=== PATIENT | female | born 1965 | race Caucasian/White ===

== ENCOUNTER 2016-08-30 16:55 | Emergency (ER) | payer BC ==
[~2016-08-30] VITALS: Ht 162.6 cm; Wt 86.8 kg
[2016-08-30] MEDS ORDERED: HYDROmorphone 1 MG/ML, 1ML IM ONE (17:30)
[2016-08-30] MEDS ORDERED: HYDR-3241 PO (17:31)
[2016-08-30] MEDS ORDERED: HYDROmorphone 1 MG/ML, 1ML ONE (17:34)
[2016-08-30 19:22] VITALS: BP 126/70
== END 2016-08-30 19:24 | disposition home or self-care (01) ==
LOC: ED 19:18
DX: S52.101A Unspecified fracture of upper end of right radius, initial encounter for closed fracture (principal); S52.001A Unspecified fracture of upper end of right ulna, initial encounter for closed fracture; X58.XXXA Exposure to other specified factors, initial encounter; Y93.89 Activity, other specified; Y92.89 Other specified places as the place of occurrence of the external cause; Y99.8 Other external cause status
CPT/HCPCS: 73200; 96372; 99284; J1170

== ENCOUNTER 2016-09-05 09:40 | Day surgery (SDC) | payer BC ==
[~2016-09-05] VITALS: Ht 162.6 cm; Wt 81.8 kg
[~2016-09-05 09:40] MED LIST: FEXO180T72 PO; HYDR-3241 PO; OXYC1TAB7 PO; SENN1TAB67 PO
[2016-09-05 10:22] VITALS: BP 110/70
[2016-09-05 10:23] LABS: HCG UR OBC PASS
[2016-09-05 10:37] VITALS: BP 110/70
[2016-09-05] MEDS ORDERED: MIDAZOLAM 1 MG/ML, 2ML ONE (11:31)
[2016-09-05] MEDS ORDERED: FENTANYL PF 250 MCG/5ML ONE (11:31)
[2016-09-05] MEDS ORDERED: BUPIVACAINE/PF 0.5% ONE (11:35)
[2016-09-05] MEDS ORDERED: BUPIVACAINE/PF-EPI 0.5% 1:200K ONE (11:43)
[2016-09-05] MEDS ORDERED: DEXAMETHASONE 4 MG/ML, 1ML ONE (12:03)
[2016-09-05] MEDS ORDERED: SUCCINYLCHOLINE 20 MG/ML, 10ML ONE (12:03)
[2016-09-05] MEDS ORDERED: CEFAZOLIN 1,000 MG ONE (12:03)
[2016-09-05] MEDS ORDERED: PROPOFOL 10 MG/ML, 20ML ONE (12:03)
[2016-09-05] MEDS ORDERED: ONDANSETRON 2MG/ML, 2ML ONE (12:03)
[2016-09-05] MEDS ORDERED: ROCURONIUM 10 MG/ML ONE (12:03)
[2016-09-05] MEDS ORDERED: morphine SULFATE 10 MG/ML, 1ML IV PRN (16:00)
[2016-09-05] MEDS ORDERED: SODIUM CHLORIDE 0.9% 1,000 ML IV SCH (16:00)
[2016-09-05] MEDS ORDERED: ONDANSETRON 2MG/ML, 2ML IV PRN (16:00)
[2016-09-05] MEDS ORDERED: OXYcodone/APAP 5/325MG TABLET PO PRN (16:00)
[2016-09-05] MEDS ORDERED: OXYC1TAB7 PO (18:30)
== END 2016-09-05 17:30 | disposition home or self-care (01) ==
LOC: OR 09:40 → 4NOR 09:47 → OR 17:30
PROVIDERS: ATTEND Orthopaedic Surgery
DX: S52.021A Displaced fracture of olecranon process without intraarticular extension of right ulna, initial encounter for closed fracture (principal); S53.104A Unspecified dislocation of right ulnohumeral joint, initial encounter; V89.2XXA Person injured in unspecified motor-vehicle accident, traffic, initial encounter; Y92.89 Other specified places as the place of occurrence of the external cause; Y99.8 Other external cause status; Y93.89 Activity, other specified
CPT/HCPCS: 24345; 24366; 24685; 64718; 73070; 76001; 81025; C1713; C1762; C1776; J0330; J0690; J1100; J2250; J2405; J2704; J3010; J3490

== ENCOUNTER 2016-10-03 22:10 | Inpatient (IN) | payer BC ==
[~2016-10-03] VITALS: Ht 162.6 cm; Wt 88.6 kg
[2016-10-03] MEDS ORDERED: IBUP200C8 PO (22:32)
[2016-10-03] MEDS ORDERED: CEPH-367 PO (22:32)
[2016-10-03] MEDS: SODIUM CHLORIDE 0.9% 1,000 ML IV ONE (22:43)
[2016-10-03] MEDS ORDERED: ONDANSETRON 2MG/ML, 2ML ONE (22:58)
[2016-10-03] MEDS ORDERED: MORPHINE SULFATE 4 MG/ML, 1ML ONE (22:58)
[2016-10-03] MEDS ORDERED: CEFAZOLIN PMX 1GM/50ML 50 ML ONE (22:59)
[2016-10-03] MEDS ORDERED: SODIUM CHLORIDE FLUSH 10ML SYR IVF ONE (23:00)
[2016-10-03] MEDS ORDERED: MORPHINE SULFATE 4 MG/ML, 1ML IV PRN (23:00)
[2016-10-03] MEDS ORDERED: VANCOMYCIN PER PHARMACY MC ONE (23:00)
[2016-10-03] MEDS ORDERED: MORPHINE SULFATE 4 MG/ML, 1ML IVPush PRN (23:00)
[2016-10-03] MEDS ORDERED: CEFAZOLIN PMX 1GM/50ML 50 ML IVPB ONE (23:00)
[2016-10-03] MEDS ORDERED: ONDANSETRON 2MG/ML, 2ML IVPush ONE (23:00)
[2016-10-03] MEDS ORDERED: SODIUM CHLORIDE FLUSH 10ML SYR IVF PRN (23:00)
[2016-10-03] MEDS ORDERED: ONDANSETRON 2MG/ML, 2ML IVPush PRN (23:00)
[2016-10-03] MEDS ORDERED: VANCOMYCIN 1,700 MG in SODIUM CHLORIDE 0.9% 250 ML IV ONE (23:00)
[2016-10-03] MEDS ORDERED: SODIUM CHLORIDE 0.9% 1,000ML IVBOLUS ONE (23:00)
[2016-10-03 23:22] LABS: BLOOD UREA NITROGEN 20 mg/dL (7-18)
[2016-10-04] MEDS: SODIUM CHLORIDE 0.9% 1,000 ML IV ONE
[2016-10-04 00:27] VITALS: BP 138/77
[2016-10-04 03:13] VITALS: BP 126/80
[2016-10-04] MEDS ORDERED: MORPHINE SULFATE 4 MG/ML, 1ML IVPush PRN (03:30)
[2016-10-04] MEDS ORDERED: D5%-0.45NACL+KCL 20MEQ 1,000 ML IV SCH (03:30)
[2016-10-04] MEDS ORDERED: DIPHENHYDRAMINE 50 MG/ML, 1ML IVPush PRN (03:30)
[2016-10-04] MEDS ORDERED: ONDANSETRON 2MG/ML, 2ML IVPush PRN ×2 (03:30→13:00)
[2016-10-04] MEDS: CEFAZOLIN PMX 1GM/50ML 50 ML IV SCH ×3 (07:50→23:13)
[2016-10-04 08:26] VITALS: BP 126/82
[2016-10-04] MEDS ORDERED: FENTANYL PF 100 MCG/2ML ONE ×3 (12:15→13:47)
[2016-10-04] MEDS ORDERED: METOCLOPRAMIDE 5 MG/ML, 2ML ONE (12:20)
[2016-10-04] MEDS ORDERED: ONDANSETRON 2MG/ML, 2ML ONE (12:20)
[2016-10-04] MEDS ORDERED: LIDOCAINE 2%, 10ML ONE (12:20)
[2016-10-04] MEDS ORDERED: PROPOFOL 10 MG/ML, 20ML ONE (12:20)
[2016-10-04] MEDS ORDERED: MEPERIDINE/PF 25MG/0.5ML IVPush PRN (13:00)
[2016-10-04] MEDS ORDERED: METOPROLOL 1 MG/ML, 5ML IV PRN (13:00)
[2016-10-04] MEDS ORDERED: LABETALOL 5MG/ML, 20ML IV PRN (13:00)
[2016-10-04] MEDS ORDERED: MIDAZOLAM 1 MG/ML, 2ML IV PRN (13:00)
[2016-10-04] MEDS ORDERED: hydrALAzine 20 MG/ML, 1ML IV PRN (13:00)
[2016-10-04] MEDS ORDERED: PROMETHAZINE 25 MG/ML, 1ML IV PRN (13:00)
[2016-10-04] MEDS ORDERED: OXYcodone 5 MG/5 ML ORAL.SOL UDC PO PRN (13:00)
[2016-10-04] MEDS ORDERED: BACITRACIN OINT 500U/GM, 15 GM ONE (13:24)
[2016-10-04] MEDS ORDERED: OXYcodone 5 MG/5 ML ORAL.SOL UDC ONE (13:47)
[2016-10-04] MEDS: D5%-0.45% NACL 1,000 ML IV SCH ×2 (13:49→23:13)
[2016-10-04] MEDS: FENTANYL PF 100 MCG/2ML IV PRN ×2 (13:50→14:05)
[2016-10-04] MEDS ORDERED: ACETAMINOPHEN 325 MG TABLET PO PRN (14:00)
[2016-10-04] MEDS ORDERED: VANCOMYCIN PER PHARMACY MC PRN (14:00)
[2016-10-04] MEDS ORDERED: HYDROmorphone 1 MG/ML, 1ML ONE (14:06)
[2016-10-04] MEDS: HYDROmorphone 1 MG/ML, 1ML IV PRN ×2 (14:10→14:25)
[2016-10-04] MEDS ORDERED: PHARMACOKINETIC MONITORING MC PRN (14:30)
[2016-10-04] MEDS ORDERED: PHARMACOKINETIC CONSULTATION MC ONE (14:30)
[2016-10-04 15:10] VITALS: BP 130/76
[2016-10-04] MEDS: CLINDAMYCIN PMX 600MG/50ML 50 ML IVPB SCH (16:29)
[2016-10-04] MEDS: HYDROcodone/APAP 5/325 TABLET PO PRN ×2 (18:05→22:11)
[2016-10-04 19:05] VITALS: BP 117/57
[2016-10-04] MEDS: DOCUSATE 100 MG CAPSULE PO SCH (21:00)
[2016-10-05] MEDS: CLINDAMYCIN PMX 600MG/50ML 50 ML IVPB SCH ×3 (00:51→16:28)
[2016-10-05 01:10] VITALS: BP 112/62
[2016-10-05] MEDS: VANCOMYCIN 1,600 MG in SODIUM CHLORIDE 0.9% 250 ML IV SCH (01:55)
[2016-10-05] MEDS: HYDROcodone/APAP 5/325 TABLET PO PRN ×4 (04:59→20:15)
[2016-10-05 06:56] VITALS: BP 116/62
[2016-10-05] MEDS: CEFAZOLIN PMX 1GM/50ML 50 ML IV SCH ×3 (07:53→23:23)
[2016-10-05] MEDS: MULTIVITAMINS/MINERALS TABLET PO SCH (09:42)
[2016-10-05] MEDS: DOCUSATE 100 MG CAPSULE PO SCH ×2 (09:42→21:00)
[2016-10-05 12:40] VITALS: BP 113/66
[2016-10-05] MEDS: D5%-0.45% NACL 1,000 ML IV SCH (14:47)
[2016-10-05 19:07] VITALS: BP 112/73
[2016-10-06] MEDS: CLINDAMYCIN PMX 600MG/50ML 50 ML IVPB SCH ×2 (00:23→09:27)
[2016-10-06] MEDS: VANCOMYCIN 1,600 MG in SODIUM CHLORIDE 0.9% 250 ML IV SCH (01:36)
[2016-10-06] MEDS: HYDROcodone/APAP 5/325 TABLET PO PRN ×4 (01:36→17:38)
[2016-10-06] MEDS: D5%-0.45% NACL 1,000 ML IV SCH ×2 (03:15→15:43)
[2016-10-06 03:20] VITALS: BP 108/66
[2016-10-06 06:42] VITALS: BP 126/80
[2016-10-06] MEDS: CEFAZOLIN PMX 1GM/50ML 50 ML IV SCH (07:52)
[2016-10-06] MEDS: MULTIVITAMINS/MINERALS TABLET PO SCH (08:03)
[2016-10-06] MEDS: DOCUSATE 100 MG CAPSULE PO SCH ×2 (08:03→21:30)
[2016-10-06 12:20] VITALS: BP 103/71
[2016-10-06] MEDS: CEFAZOLIN PMX 2GM/50ML 50 ML IV SCH ×2 (15:43→23:57)
[2016-10-06 19:13] VITALS: BP 130/84
[2016-10-07] MEDS: HYDROcodone/APAP 5/325 TABLET PO PRN ×5 (00:02→22:17)
[2016-10-07 00:09] VITALS: BP 130/77
[2016-10-07] MEDS: D5%-0.45% NACL 1,000 ML IV SCH ×3 (02:00→22:17)
[2016-10-07 06:30] LABS: ASPARTATE AMINO TRANSFERASE 12 U/L (15-37); BLOOD UREA NITROGEN 10 mg/dL (7-18)
[2016-10-07 07:03] VITALS: BP 119/78
[2016-10-07] MEDS: CEFAZOLIN PMX 2GM/50ML 50 ML IV SCH ×2 (07:36→15:19)
[2016-10-07] MEDS: DOCUSATE 100 MG CAPSULE PO SCH ×2 (07:36→22:17)
[2016-10-07] MEDS: MULTIVITAMINS/MINERALS TABLET PO SCH (07:36)
[2016-10-07 16:05] VITALS: BP 118/82
[2016-10-07] MEDS: DAPTOMYCIN 550 MG in SODIUM CHLORIDE 0.9% 100 ML IVPB SCH (17:21)
[2016-10-07 19:32] VITALS: BP 117/77
[2016-10-08 02:23] VITALS: BP 112/73
[2016-10-08] MEDS: HYDROcodone/APAP 5/325 TABLET PO PRN ×3 (04:48→17:28)
[2016-10-08 05:40] LABS: C-REACTIVE PROTEIN, QUANT 0.9 mg/dL (0.02-0.49)
[2016-10-08 07:52] VITALS: BP 114/78
[2016-10-08] MEDS: D5%-0.45% NACL 1,000 ML IV SCH (08:00)
[2016-10-08] MEDS: MULTIVITAMINS/MINERALS TABLET PO SCH (08:04)
[2016-10-08] MEDS: DOCUSATE 100 MG CAPSULE PO SCH (08:04)
[2016-10-08 14:57] VITALS: BP 145/77
[2016-10-08] MEDS: DAPTOMYCIN 550 MG in SODIUM CHLORIDE 0.9% 100 ML IVPB SCH (16:09)
[2016-10-08 17:27] VITALS: BP 131/71
== END 2016-10-08 17:58 | disposition home or self-care (01) | DRG 857 ==
LOC: ED 22:48 → EDIP 22:57 → 3NE 10-04 00:05 → 4NOR 10-06 11:58
PROVIDERS: ADMIT Orthopaedic Surgery; ATTEND Orthopaedic Surgery
PROC: 0JBG0ZZ Excision of Right Lower Arm Subcutaneous Tissue and Fascia, Open Approach (ICD-10-PCS; principal; 2016-10-04 12:45)
PROC: 02HV33Z Insertion of Infusion Device into Superior Vena Cava, Percutaneous Approach (ICD-10-PCS; 2016-10-08)
PROC: B5181ZA Fluoroscopy of Superior Vena Cava using Low Osmolar Contrast, Guidance (ICD-10-PCS; 2016-10-08)
PROC: B548ZZA Ultrasonography of Superior Vena Cava, Guidance (ICD-10-PCS; 2016-10-08)
DX: T81.4XXA Infection following a procedure, initial encounter (principal); T81.32XA Disruption of internal operation (surgical) wound, not elsewhere classified, initial encounter; M86.8X3 Other osteomyelitis, forearm; L03.113 Cellulitis of right upper limb; Y83.8 Other surgical procedures as the cause of abnormal reaction of the patient, or of later complication, without mention of misadventure at the time of the procedure; B95.61 Methicillin susceptible Staphylococcus aureus infection as the cause of diseases classified elsewhere; Y92.89 Other specified places as the place of occurrence of the external cause; Z88.2 Allergy status to sulfonamides
CPT/HCPCS: 36415; 36569; 76937; 77001; 80048; 80053; 82040; 82550; 82565; 85025; 85651; 86140; 86141; 87040; 87070; 87075; 87077; 87147; 87186; 87205; 96365; J0690; J0878; J1170; J2405; J2704; J3010; J3370; J3490; C1751; J2765; J3480; J7030; J7050

== ENCOUNTER 2016-10-30 12:19 | Day surgery (SDC) | payer BC ==
[2016-10-29 11:42] VITALS: BP 139/90
[~2016-10-30] VITALS: Ht 162.6 cm; Wt 81.5 kg
[~2016-10-30 12:19] MED LIST changes: +CEFAZOLIN 1,000 MG ONE; +CEPH-367 PO; +DAPT500V6 IV; +GLYCOPYRROLATE 0.2MG/1ML ONE; +IBUP200C8 PO; +NEOSTIGMINE 1 MG/ML, 10ML ONE; +ONDANSETRON 2MG/ML, 2ML ONE; +PROPOFOL 10 MG/ML, 20ML ONE; +ROCURONIUM 10 MG/ML ONE
[2016-10-30] MEDS ORDERED: LACTATED RINGERS 1,000 ML IV SCH (12:55)
[2016-10-30] MEDS ORDERED: L.AC1CAP6 PO (12:59)
[2016-10-30] MEDS ORDERED: LIDOCAINE 1%, 2ML SQ PRN (13:00)
[2016-10-30] MEDS ORDERED: BACITRACIN OINT 500U/GM, 15 GM ONE (14:04)
[2016-10-30] MEDS ORDERED: BUPIVACAINE/PF-EPI 0.5% 1:200K ONE (14:04)
[2016-10-30] MEDS ORDERED: BACITRACIN 50,000 UNIT ONE (14:04)
[2016-10-30] MEDS ORDERED: MINERAL OIL 10 ML VIAL MC ONE (14:15)
[2016-10-30] MEDS ORDERED: FENTANYL PF 250 MCG/5ML ONE (14:33)
[2016-10-30] MEDS ORDERED: LIDOCAINE/PF 1.5%-EPI 1:200K, 30ML INFIL ONE (15:18)
[2016-10-30] MEDS ORDERED: OXYcodone 5 MG/5 ML ORAL.SOL UDC PO PRN (15:30)
[2016-10-30] MEDS ORDERED: ONDANSETRON 2MG/ML, 2ML IVPush PRN (15:30)
[2016-10-30] MEDS ORDERED: hydrALAzine 20 MG/ML, 1ML IV PRN (15:30)
[2016-10-30] MEDS ORDERED: METOPROLOL 1 MG/ML, 5ML IV PRN (15:30)
[2016-10-30] MEDS ORDERED: ALBUTEROL SULFATE 2.5 MG/3 ML NPPB PRN (15:30)
[2016-10-30] MEDS ORDERED: LABETALOL 5MG/ML, 20ML IV PRN (15:30)
[2016-10-30] MEDS ORDERED: MEPERIDINE/PF 25MG/0.5ML IVPush PRN (15:30)
[2016-10-30] MEDS ORDERED: ACETAMINOPHEN 325 MG TABLET PO PRN (15:30)
[2016-10-30] MEDS ORDERED: EPHEDRINE 50 MG/ML, 1ML IVPush PRN (15:30)
[2016-10-30] MEDS ORDERED: HYDROmorphone 1 MG/ML, 1ML ONE ×2 (15:43→17:06)
[2016-10-30] MEDS ORDERED: FENTANYL PF 100 MCG/2ML ONE (16:22)
[2016-10-30] MEDS ORDERED: ACETAMINOPHEN 650 MG/20.3 ML UDC ONE (16:22)
[2016-10-30] MEDS ORDERED: OXYcodone 5 MG/5 ML ORAL.SOL UDC ONE (16:22)
[2016-10-30] MEDS: FENTANYL PF 100 MCG/2ML IV PRN ×2 (16:22→16:42)
[2016-10-30] MEDS: HYDROmorphone 1 MG/ML, 1ML IV PRN ×2 (17:08→17:25)
[2016-10-30] MEDS ORDERED: LIDOCAINE/PF 1.5%-EPI 1:200K, 30ML ONE (17:15)
== END 2016-10-30 18:45 ==
LOC: OUT 12:19
PROVIDERS: ATTEND Orthopaedic Surgery
DX: T84.614A Infection and inflammatory reaction due to internal fixation device of right ulna, initial encounter (principal); Y83.8 Other surgical procedures as the cause of abnormal reaction of the patient, or of later complication, without mention of misadventure at the time of the procedure; Y92.89 Other specified places as the place of occurrence of the external cause; Z88.1 Allergy status to other antibiotic agents; Z98.890 Other specified postprocedural states
CPT/HCPCS: 11044; 15100; J1170; J3010; J3490; J7120; J0690; J2405; J2704; J2710